=== PATIENT | male | born 1975 | race Caucasian/White ===

== ENCOUNTER → 2024-12-15 | Outpatient (CLI) | payer MEDICARE, SELFPAY ==
--- NOTE | 2024-12-15 07:29 | MRI_ITS ---
PROCEDURE: SPINE LUMBAR (ROUTINE) 12/15/2024 REASON FOR EXAM: RADICULOPATHY, RT FOOT DROP TECHNIQUE: Multiplanar and multisequence images were obtained without IV contrast administration. COMPARISON: None FINDINGS: Vertebrae: Vertebral body heights are maintained. Loss of disc space at L5-S1. Otherwise, disc spaces are maintained. Homogeneous enhancement. No suspicious marrow replacement. Alignment: Lumbar lordosis is maintained. Conus Medullaris: The conus terminates at L2. Cauda equina nerve roots are within normal limits. L1-2: Canal and foramina are patent. L2-3: Canal and foramina are patent. L3-4: Small circumferential disc bulge and mild facet degenerative changes with flattening of the ventral thecal sac. Mild bilateral neural foraminal narrowing. No significant canal stenosis. L4-5: Circumferential disc bulge and focal disc protrusion, facet degenerative changes with mild canal stenosis. Moderate bilateral neural foraminal narrowing. L5-S1: Circumferential disc bulge and focal disc protrusion with mild canal stenosis. Facet degenerative changes also noted. Moderate-severe bilateral neural foraminal narrowing. Sacrum: Circumferential unremarkable. MRI/Spine Lumbar (Routine) IMPRESSION: No acute findings. Multilevel degenerative changes, most prominent at L4-L5 with up to mild canal stenosis and moderate bilateral neural foraminal narrowing facet Reading Location: [facility]
== END | disposition home or self-care (01) ==
LOC: MRI 07:26
PROVIDERS: PCP Internal Medicine
DX: M21.371 Foot drop, right foot (principal); M54.16 Radiculopathy, lumbar region
CPT/HCPCS: 72148